=== PATIENT | female | born 1945 | race Caucasian/White ===

== ENCOUNTER 2017-03-04 07:28 | Emergency (ER) | payer MEDICARE, OTHER ==
[~2017-03-04] VITALS: Ht 170.2 cm; Wt 121.4 kg
[~2017-03-04 07:28] MED LIST: ACETAMINOPHEN-1 EAC1 PO; ALPRAZOLAM0.25 MG PO; CITALOPRAM HBR40 MG PO; FUROSEMIDE40 MG PO; GLIMEPIRIDE2 MG PO; KLOR-CON M2020 MEQ PO; LEVAQUIN500 MG PO; LEVOTHYROXINE125 MCG PO; LEVOTHYROXINE137 MCG PO; LISINOPRIL-HCT1 EACH PO; LISINOPRIL2.5 MG PO; NITROFURANTOIN100 M1 PO; POTASSIUM CHLO20 ME1 PO; PROAIR HFA8.5 GM INH; PROBIOTIC1 EAC1 PO; QVAR7.3 GM INH; SIMVASTATIN40 MG PO; TYLENOL WITH C1 EACH PO; VITAMIN D1000 UNIT PO
[2017-03-04] MEDS ORDERED: SIMVASTATIN40 MG PO (07:48)
[2017-03-04] MEDS ORDERED: METFORMIN HCL1000 MG PO (07:48)
[2017-03-04] MEDS ORDERED: GLIMEPIRIDE4 MG PO (07:49)
[2017-03-04] MEDS ORDERED: BACLOFEN20 MG PO (08:54)
[2017-03-04] MEDS ORDERED: NORCO 5-325 TA1 EACH PO (08:54)
== END 2017-03-04 09:00 | disposition home or self-care (01) ==
LOC: ED 07:28
DX: M25.552 Pain in left hip (principal); M25.562 Pain in left knee; E66.9 Obesity, unspecified; I10 Essential (primary) hypertension; E11.9 Type 2 diabetes mellitus without complications; F41.9 Anxiety disorder, unspecified; E03.9 Hypothyroidism, unspecified; Z87.891 Personal history of nicotine dependence; Z90.49 Acquired absence of other specified parts of digestive tract; Z90.710 Acquired absence of both cervix and uterus; Z88.2 Allergy status to sulfonamides; Z88.8 Allergy status to other drugs, medicaments and biological substances; Z91.013 Allergy to seafood; Z79.84 Long term (current) use of oral hypoglycemic drugs; Z79.899 Other long term (current) drug therapy
CPT/HCPCS: 73502; 73560; 99283

== ENCOUNTER 2020-07-20 11:07 | Inpatient (IN) | payer MEDICARE, OTHER ==
[~2020-07-20] VITALS: Ht 167.6 cm; Wt 109.7 kg
[~2020-07-20 11:07] MED LIST changes: +ADULT LOW DOSE81 MG PO; +BACLOFEN20 MG PO; +BUPROPION XL300 MG PO; +CEFUROXIME500 MG PO; +FLUTICASONE PRO16 GM NAS; +GLIMEPIRIDE4 MG PO; +LISINOPRIL20 MG PO; +MAGNESIUM400 M1 PO; +METFORMIN HCL1000 MG PO; +NORCO 5-325 TA1 EACH PO; +VITAMIN B COMP1 EACH PO; +ZINC CHELATED50 MG PO
[2020-07-20] MEDS ORDERED: OMEPRAZOLE40 MG PO (15:20)
[2020-07-20] MEDS ORDERED: TRIAMTERENE-HC1 EAC1 PO (15:21)
[2020-07-20] MEDS ORDERED: CREON DR 36,001 EACH PO (17:38)
[2020-07-20] MEDS ORDERED: LOPERAMIDE2 M1 PO (17:39)
[2020-07-20] MEDS ORDERED: ACETAMINOPHEN-1 EAC1 PO (17:41)
[2020-07-20] MEDS ORDERED: WOMEN'S DAILY1 EAC2 PO (17:42)
[2020-07-23] MEDS ORDERED: LISINOPRIL40 MG PO (08:17)
[2020-07-23] MEDS ORDERED: BASAGLAR K100 UNIT/1 SUB-Q (08:18)
[2020-07-23] MEDS ORDERED: OXYCODONE HCL5 MG PO (08:20)
[2020-07-23] MEDS ORDERED: METFORMIN HCL1000 MG PO (08:21)
[2020-07-23] MEDS ORDERED: INSULIN PEN NE1 EACH MISC (08:21)
== END 2020-07-23 11:10 | disposition home or self-care (01) | DRG 440 ==
LOC: ED 11:07 → MS 14:16
PROVIDERS: ADMIT Internal Medicine; ATTEND Internal Medicine
DX: K85.00 Idiopathic acute pancreatitis without necrosis or infection (principal); Z20.822 Contact with and (suspected) exposure to COVID-19; I10 Essential (primary) hypertension; G47.33 Obstructive sleep apnea (adult) (pediatric); E11.65 Type 2 diabetes mellitus with hyperglycemia; E03.9 Hypothyroidism, unspecified; Z79.899 Other long term (current) drug therapy; Z79.51 Long term (current) use of inhaled steroids; Z79.84 Long term (current) use of oral hypoglycemic drugs; Z88.2 Allergy status to sulfonamides; Z88.1 Allergy status to other antibiotic agents; Z88.8 Allergy status to other drugs, medicaments and biological substances
CPT/HCPCS: 36415; 80053; 81001; 83036; 83690; 83735; 85025; 86703; 86704; 86706; 86709; 86803; 87340; 94760; 96374; 96375; 96376; 99285-25; C9803; J1170; J1650; J1815; J2405; J3475; J7030; J7121; U0003

== ENCOUNTER 2023-09-05 11:31 | Emergency (ER) | payer MEDICARE, OTHER ==
[~2023-09-05] VITALS: Ht 167.6 cm; Wt 128.9 kg
[~2023-09-05 11:31] MED LIST changes: +BASAGLAR K100 UNIT/1 SUB-Q; +CREON DR 36,001 EACH PO; +INSULIN PEN NE1 EACH MISC; +LISINOPRIL40 MG PO; +LOPERAMIDE2 M1 PO; +OMEPRAZOLE40 MG PO; +OXYCODONE HCL5 MG PO; +TRIAMTERENE-HC1 EAC1 PO; +WOMEN'S DAILY1 EAC2 PO
[2023-09-05] MEDS ORDERED: PIOGLITAZONE HC45 MG PO (11:48)
[2023-09-05] MEDS ORDERED: ALEVAZOL56.7 GM TP (11:49)
[2023-09-05 11:59] LABS: BASOPHILS 0.8 % (0-2); EOSINOPHILS 1.5 % (0-6); HEMOGLOBIN 12.1 g/dL (12.0-18.0); LYMPHOCYTES 28.8 % (24-44); MCH 31.8 (27-36); MCHC 33.5 g/dl (30-36); MCV 94.9 fl (81-99); MONOCYTES 5.2 % (0-12); NEUTROPHILS 63.7 % (39-80); PLATELET COUNT 217 K/uL (140-440); RDW 13.9 (10.5-15.0)
[2023-09-05 12:10] LABS: ALBUMIN/GLOBULIN RATIO 0.61 (1.1-2.4); ANION GAP 12.6 (7-21); BILIRUBIN, TOTAL 0.6 ng/dL (0.2-1.0); BUN/CREATININE RATIO 7.77 (6.0-28.6); CALCIUM 8.8 mg/dL (8.5-10.1); CREATININE, SERUM 0.9 mg/dL (0.55-1.02); MAGNESIUM 1.2 mg/dL (1.8-2.4); POTASSIUM 3.6 mmol/L (3.5-5.1); PROTEIN, TOTAL 7.9 g/dL (6.4-8.2)
[2023-09-05] MEDS ORDERED: MAGNESIUM SULFATE 2 GM/50 ML BAG IV ONE (13:15)
[2023-09-05] MEDS ORDERED: POTASSIUM CHLORIDE 10 MEQ TABCR PO ONE (13:15)
[2023-09-05] MEDS ORDERED: FUROSEMIDE 40 MG/4 ML VIAL IV ONE (13:15)
[2023-09-05] MEDS ORDERED: ASPIRIN 81 MG CHEW PO ONE (14:00)
[2023-09-05] MEDS ORDERED: ACETAMINOPHEN 500 MG TAB PO ONE (14:00)
[2023-09-05] MEDS ORDERED: LORazepam 1 MG TAB PO ONE (14:30)
[2023-09-05] MEDS ORDERED: HEPARIN SOD,PORK IN 0.45% NACL 500 ML IV SCH (17:30)
[2023-09-05] MEDS ORDERED: HEParin SOD (PORCINE) 5,000 UNIT/ML VIAL IV ONE (17:30)
[2023-09-05] MEDS ORDERED: LOPERAMIDE HCL 2 MG CAP PO ONE (20:00)
[2023-09-05] MEDS ORDERED: LORazepam 2 MG/ML VIAL IV ONE (20:00)
[2023-09-05 20:04] VITALS: BP 141/100
--- NOTE | 2023-09-07 23:12 | EKG ---
[facility] [address] [place] [address] Signed Sinus rhythm with premature atrial complexes Low voltage QRS Nonspecific T wave abnormality Confirmed by Josué Florence M.D. ([id number]) on 09/07/2023 11:12:26 PM Electronically Signed By: JOSUÉ FLORENCE MD 09/07/23 2312 PATIENT NAME: CLAUDE BADILLO SANJAY Electrocardiogram DATE OF : 41 PHYSICIAN: JOSUÉ FLORENCE MD REPORT #: [id number] REPORT IS CONFIDENTIAL AND NOT TO BE RELEASED WITHOUT AUTHORIZATION
== END 2023-09-05 20:06 | disposition short-term general hospital (02) ==
LOC: ED 11:31
PROVIDERS: Emergency Medicine
DX: I11.0 Hypertensive heart disease with heart failure (principal); I50.9 Heart failure, unspecified; I21.4 Non-ST elevation (NSTEMI) myocardial infarction; J44.9 Chronic obstructive pulmonary disease, unspecified; E11.9 Type 2 diabetes mellitus without complications; E03.9 Hypothyroidism, unspecified; E66.9 Obesity, unspecified; Z68.42 Body mass index [BMI] 45.0-49.9, adult; Z99.81 Dependence on supplemental oxygen; Z87.891 Personal history of nicotine dependence; Z88.8 Allergy status to other drugs, medicaments and biological substances; Z91.013 Allergy to seafood; Z88.2 Allergy status to sulfonamides; Z79.899 Other long term (current) drug therapy; Z79.890 Hormone replacement therapy
CPT/HCPCS: 36415; 71045; 80053; 83735; 83880; 84484; 85025; 93005; 93010; A9270; A9270-GY; J1644; J1940; J2060; J3475